=== PATIENT | male | born 1975 | race Caucasian/White ===

== ENCOUNTER → 2016-09-27 | Outpatient (CLI) | payer BC ==
--- NOTE | 2016-09-27 17:56 | DI ---
HISTORY: Right lower extremity swelling, recent post-op. TECHNIQUE/FINDINGS: Pulse wave Doppler and real-time analysis of the right lower extremity deep veno us system from the common femoral vein to the proximal posterior tibial/peroneal veins demonstrate no evidence of intraluminal thrombus. The deep veins are completely compressible at all these levels. There is normal respiratory variation and augmentation of the venous wave forms. Prepatellar soft tissue swelling and small fluid collection is noted, correlation with clinical exam is requested. IMPRESSION: 1. Negative right lower extremity deep venous ultrasound study, no evidence of deep venous thrombosis . 2. Prepatellar soft tissue swelling and small fluid collection is noted, correlation with clinical ex am is requested.
== END ==
LOC: US 16:31
PROVIDERS: ATTEND Orthopaedic Surgery
DX: M79.604 Pain in right leg (principal); M25.461 Effusion, right knee; M79.89 Other specified soft tissue disorders
CPT/HCPCS: 93971

== ENCOUNTER → 2016-09-30 | Outpatient (CLI) | payer BC ==
--- NOTE | 2016-09-30 21:19 | DI ---
MRI LOW EXTREMITY JNT W/O CN,09/30/2016 2:33 PM: Clinical History: Right knee pain of unspecified chronicity. Previous Exam: August 31, 2016 Findings: Multiplanar MR images are obtained through the right knee without contrast. There is an enlarged right knee joint effusion. 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 There is also a new contusion involving the weightbe aring surface of the left weightbearing surface of the lateral femoral condyle. The missing bone and cartilage from the trochlear area is now replaced within the weightbearing surface of the left medial femoral condyle. The medial and lateral collateral ligaments are intact. The lateral meniscus is intact. The medial meniscus is also intact. There is some mild thickening of the synovial plica. The anterior and posterior cruciate ligaments are intact as are the medial and lateral collateral lig aments. Signal within the surrounding musculature is unremarkable. The quadriceps and patellar tendons are unremarkable. There is some edema of the prepatellar fat. 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 There is still some edema at the donor site in the fusion s ite however, this appears to be in good position with no significant step-off.
== END ==
LOC: MRI 14:27
PROVIDERS: ATTEND Orthopaedic Surgery
DX: M25.561 Pain in right knee (principal); M25.461 Effusion, right knee
CPT/HCPCS: 73721